=== PATIENT | male | born 1975 | race Caucasian/White ===

== ENCOUNTER 2019-09-02 09:06 | Inpatient (IN) ==
[2019-09-02 09:32] LABS: Basophils % 0.3 %; Eosinophils # 0.1 K/mcL (0.0-0.6); Eosinophils % 1.2 %; Hematocrit 47.1 % (37.5-50.1); Hemoglobin 15.6 g/dL (12.9-16.9); Immature Granulocytes % 0.4 % (0-4); Lymphocytes # 1.8 K/mcL (0.6-4.6); Lymphocytes % 14.9 %; Mean Corpuscular HGB Conc 33.1 g/dL (31.6-35.5); Mean Corpuscular Hemoglobin 31.6 pg (28.0-33.3); Mean Corpuscular Volume 95.3 fL (83.0-100.0); Mean Platelet Volume 11.7 fL (9.4-12.4); Monocytes # 0.9 K/mcL (0.0-1.3); Monocytes % 7.2 %; Platelet Count 164 K/mcL (140-400); Red Blood Count 4.94 M/mcL (4.19-5.50); Red Cell Distribution Width 12.9 % (11.5-14.5); White Blood Count 11.9 K/mcL (4.3-11.1)
[2019-09-02 09:58] LABS: Alanine Aminotransferase 21 Units/L (7-52); Albumin 4.2 g/dL (3.5-5.7); Albumin/Globulin Ratio 1.5 (1.1-2.2); Alkaline Phosphatase 79 Units/L (34-104); Aspartate Amino Transferase 16 Units/L (13-39); BUN/Creatinine Ratio 11 (6-26); Bilirubin,Total 0.3 mg/dL (0.3-1.0); Blood Urea Nitrogen 11 mg/dL (6-20); Carbon Dioxide 27 mEq/L (23-29); Chloride 107 mEq/L (98-107); Globulin 2.8 g/dL (2.4-3.5); Glucose 84 mg/dL (70-105); Osmolality,Calculated 287 (280-300); Potassium 3.2 mEq/L (3.5-5.1); Sodium 139 mEq/L (136-145); eGFR For African Americans > 60 (> 60); eGFR For Non-African Americans > 60 (> 60)
[2019-09-02] MEDS ORDERED: *HR* Heparin 5,000 UNIT/ML VIAL IVP PRN ×2 (09:58)
[2019-09-02] MEDS ORDERED: Aspirin 325 MG TABLET PO ONE (09:58)
[2019-09-02 10:17] LABS: Prothrombin Time 11.9 Seconds (9.4-12.1)
[2019-09-02 10:19] LABS: Heparin anti-factor XA UFH 0.01 IU/mL (0.30-0.70)
[2019-09-02] MEDS ORDERED: Potassium Chloride Elixir 20 MEQ/15 ML UDC PO ONE (10:19)
[2019-09-02] MEDS: Heparin 25,000 UNIT/250 ML D5W 25,000 UNIT/250 ML IV.SOLN IVC SCH (10:26)
[2019-09-02] MEDS ORDERED: Nitroglycerin 0.4 MG TAB.SUBL SL ONE (10:59)
[2019-09-02] MEDS ORDERED: Nitroglycerin 0.4 MG TAB.SUBL SL SCH ×2 (11:00→11:15)
[2019-09-02] MEDS ORDERED: Naloxone 0.4 MG/ML INJ IVP PRN (11:30)
[2019-09-02] MEDS ORDERED: Ondansetron 4 MG/2 ML VIAL IVP PRN (11:30)
[2019-09-02] MEDS ORDERED: Nicotine 2 MG GUM BC PRN (12:45)
[2019-09-02] MEDS ORDERED: Nitroglycerin 25 MG/250 ML INFUS..BTL IVC SCH (14:15)
[2019-09-02] MEDS: Nicotine 21 MG PATCH.TD24 TD SCH (15:51)
[2019-09-02] MEDS: Gabapentin 300 MG CAPSULE PO SCH ×2 (15:54→21:02)
[2019-09-02] MEDS: Budesonide/Formoterol 80/4.5 1 PUFF INH IH SCH (20:50)
[2019-09-02] MEDS: predniSONE 20 MG TABLET PO SCH (21:02)
[2019-09-02] MEDS: traZODone 50 MG TABLET PO SCH (21:02)
[2019-09-02] MEDS ORDERED: Acetaminophen 325 MG TABLET PO PRN (21:21)
[2019-09-03 02:02] LABS: Basophils % 0.3 %; Eosinophils # 0.1 K/mcL (0.0-0.6); Hematocrit 48.2 % (37.5-50.1); Hemoglobin 15.5 g/dL (12.9-16.9); Immature Granulocytes % 0.8 % (0-4); Lymphocytes # 0.9 K/mcL (0.6-4.6); Lymphocytes % 9.4 %; Mean Corpuscular HGB Conc 32.2 g/dL (31.6-35.5); Mean Corpuscular Hemoglobin 31.7 pg (28.0-33.3); Mean Corpuscular Volume 98.6 fL (83.0-100.0); Mean Platelet Volume 11.9 fL (9.4-12.4); Monocytes # 0.2 K/mcL (0.0-1.3); Monocytes % 2.4 %; Neutrophils # 7.8 K/mcL (1.6-8.9); Platelet Count 153 K/mcL (140-400); Red Blood Count 4.89 M/mcL (4.19-5.50); Red Cell Distribution Width 12.7 % (11.5-14.5); Segmented Neutrophils % 86.1 %; White Blood Count 9.1 K/mcL (4.3-11.1)
[2019-09-03 02:31] LABS: BUN/Creatinine Ratio 11 (6-26); Blood Urea Nitrogen 11 mg/dL (6-20); Calcium 9.3 mg/dL (8.6-10.3); Carbon Dioxide 24 mEq/L (23-29); Chloride 107 mEq/L (98-107); Chol/HDL Ratio 7.3 (0-4.9); Cholesterol 233 mg/dL (< 200); Glucose 138 mg/dL (70-105); HDL Cholesterol 32 mg/dL (40-59); Magnesium 2.1 mg/dL (1.6-2.6); Osmolality,Calculated 286 (280-300); Potassium 4.6 mEq/L (3.5-5.1); Sodium 137 mEq/L (136-145); Triglycerides 836 mg/dL (< 150); eGFR For African Americans > 60 (> 60); eGFR For Non-African Americans > 60 (> 60)
[2019-09-03] MEDS: Heparin 25,000 UNIT/250 ML D5W 25,000 UNIT/250 ML IV.SOLN IVC SCH (02:52)
[2019-09-03] MEDS ORDERED: 0.9 % Sodium Chloride 1,000 ML ONE ×2 (07:40→07:43)
[2019-09-03] MEDS ORDERED: ISOVUE-370 200 ML INFUS..BTL ONE (07:40)
[2019-09-03] MEDS ORDERED: Verapamil 5 MG/2 ML VIAL ONE (07:40)
[2019-09-03] MEDS ORDERED: Nitroglycerin 1,000 MCG/10 ML VIAL IV ONE (07:40)
[2019-09-03] MEDS ORDERED: Heparin 1,000 UNITS/500 mL 500 ML ONE (07:40)
[2019-09-03] MEDS ORDERED: *HR* Heparin 10,000 UNIT/10 ML VIAL ONE (07:40)
[2019-09-03] MEDS: Gabapentin 300 MG CAPSULE PO SCH ×3 (07:51→19:55)
[2019-09-03] MEDS: Aspirin 81 MG TAB.CHEW PO SCH (07:51)
[2019-09-03] MEDS: predniSONE 20 MG TABLET PO SCH (07:53)
[2019-09-03] MEDS: Nicotine 21 MG PATCH.TD24 TD SCH ×2 (07:53→19:56)
[2019-09-03] MEDS ORDERED: *HR* Midazolam HCl 2 MG/2 ML VIAL ONE (08:14)
[2019-09-03] MEDS ORDERED: *HR* Ticagrelor 90 MG TABLET ONE (09:11)
[2019-09-03] MEDS: Budesonide/Formoterol 80/4.5 1 PUFF INH IH SCH ×2 (09:51→20:34)
[2019-09-03] MEDS: *HR* Heparin 5,000 UNIT/ML VIAL SQ SCH (18:07)
[2019-09-03] MEDS: *HR* Ticagrelor 90 MG TABLET PO SCH (19:56)
[2019-09-03] MEDS: traZODone 50 MG TABLET PO SCH (19:56)
[2019-09-04] MEDS: *HR* Heparin 5,000 UNIT/ML VIAL SQ SCH (05:54)
[2019-09-04 06:19] LABS: Hematocrit 46.1 % (37.5-50.1); Hemoglobin 15.6 g/dL (12.9-16.9)
[2019-09-04 06:37] LABS: BUN/Creatinine Ratio 23 (6-26); Blood Urea Nitrogen 20 mg/dL (6-20); Carbon Dioxide 25 mEq/L (23-29); Chloride 107 mEq/L (98-107); Glucose 103 mg/dL (70-105); Osmolality,Calculated 297 (280-300); Potassium 3.6 mEq/L (3.5-5.1); Sodium 142 mEq/L (136-145); eGFR For African Americans > 60 (> 60); eGFR For Non-African Americans > 60 (> 60)
[2019-09-04 07:13] VITALS: BP 111/75
[2019-09-04] MEDS: Budesonide/Formoterol 80/4.5 1 PUFF INH IH SCH (07:24)
[2019-09-04] MEDS: Gabapentin 300 MG CAPSULE PO SCH (09:10)
[2019-09-04] MEDS: Nicotine 21 MG PATCH.TD24 TD SCH (09:12)
[2019-09-04] MEDS: *HR* Ticagrelor 90 MG TABLET PO SCH (09:12)
[2019-09-04] MEDS: Aspirin 81 MG TAB.CHEW PO SCH (09:12)
== END 2019-09-04 09:52 | disposition home or self-care (01) | DRG 247 ==
LOC: SUATTDRO → 2NENU 09:06 → EMEROOARM 09:06 → SUATTDRO 10:45 → OBSVTOIN 10:45 → 2NENU 12:10
PROVIDERS: ADMIT Internal Medicine; ATTEND Internal Medicine